=== PATIENT | male | born 1990 | race Caucasian/White ===

== ENCOUNTER → 2018-07-09 09:30 | Day surgery (SDC) | payer OTHER ==
[~2018-07-09 09:30] MED LIST: Acetaminophen TAB* 325 MG PO PRN; Bacitracin OINTMENT* 0.5% 0.5 oz TUBE ONE; Buffered Lidocaine 1% SYRIN* 1 ML/SYRINGE INTRADERM ONE; Bupivacaine 0.25% W/EPI* 10 ML SDV ONE; Dexamethasone IV* 4 MG/ML 1 ML (4 MG) IV SLOW PU ONE; Dexamethasone IV* 4 MG/ML 1 ML (4 MG) ONE; DiMENhydriNATE IV* 50 MG/ML VIAL IV PUSH PRN; Famotidine TAB* 20 MG ONE; Famotidine TAB* 20 MG PO ONE; Glycopyrrolate IV* 0.2 MG/ML 1 ML VIAL ONE; HYDROcodone/ACETAMIN 5-325 MG* 1 TAB PO PRN; HYDROmorphone INJ1* 1 MG/ML SYRINGE IV PRN; Ketorolac INJ* 30 MG/ML 1 ML VIAL IV PRN; Ketorolac INJ* 30 MG/ML 1 ML VIAL ONE; Lactated Ringers 1000 ML Bag* 1,000 ML IV SCH; Levalbuterol 1.25MG/0.5ML NEB INH ONE; Levalbuterol 1.25MG/0.5ML NEB ONE; Lidocaine 2% PF * 5 ML VIAL ONE; Midazolam* 1 MG/ML 2 ML VIAL (2 MG) ONE; Naloxone* 0.4 MG/ML 1 ML VIAL IV PRN; Neostigmine Methylsulfate* 3 MG/3 ML SYRINGE ONE; Ondansetron INJ* 2 MG/ML VIAL ONE; Propofol* 10 MG/ML 20 ML BTL ONE; Rocuronium* 10 MG/ML VIAL ONE; ceFAZolin 2 GM in NS PREMIX(*) 2 GM/100 ML BAG IVPB ONE; fentaNYL* 50 MCG/ML 2 ML VIAL (100 MCG VIAL) IV PRN; fentaNYL* 50 MCG/ML 5 ML VIAL (250 MCG VIAL) ONE
--- NOTE | 2018-07-09 13:12 | OP ---
Operative Report - Blank - Operative Report Date of Operation: 07/09/18 Note: Brief Operative Note Preop Dx: Chronic inflammation umbilicus Postop Dx: same Procedure: Diagnostic laparoscopy; excision granulomatous lesion umbilicus; primary repair umbilical hernia Anesthesia: GET Surgeon: Donya User Interface Developer: JIMENEZ Briceño Fluids: 1200 ml RL EBL: < 20 ml Specimen: umbilical lesion Drains: none Findings: dictated
[2018-07-09 14:22] VITALS: BP 107/62
--- NOTE | 2018-07-10 02:31 | OP ---
CC: [facility]; PCP OPERATIVE REPORT: DATE OF OPERATION: 07/09/18 DATE OF : 89 SURGEON: Akil Naqvi MD [employer] TEACHER: JIMENEZ Sousa ANESTHESIA: General. ANESTHESIOLOGIST: Dr. Paredes. PRE-OP DIAGNOSIS: Umbilical lesion. POST-OP DIAGNOSES: Umbilical lesion and umbilical hernia. OPERATIVE PROCEDURE: Diagnostic laparoscopy, excision of umbilical lesion, and primary repair of umb ilical hernia. ESTIMATED BLOOD LOSS: Less than 20 cc. FLUIDS: 1200 cc of crystalloid fluids given. SPECIMEN: Umbilical lesion placed in formalin. DRAINS: None. Wound was primarily closed. DESCRIPTION OF PROCEDURE: The patient was identified in the preoperative area, consent was signed. He was marked, brought to the operating room, placed on the operating room table in a supine position . Preoperative antibiotics were given. Sequential devices were placed on bilateral lower extremities . General anesthesia was induced. The patient's abdomen was clipped of hair, prepped and draped in standard surgical fashion and a time-out was performed. A left upper quadrant incision was made at Colon's point, deepened down to the anterior fascia, whic h was elevated and a Veress needle inserted into the abdominal cavity which was then allowed to insuf flate to a pressure of 15 mmHg. The patient tolerated the insufflation well. The Veress needle was removed and a 5-mm Optiview trocar was then inserted. Review of the abdomen showed no evidence of in jury from the trocar insertion. We did look at the umbilical site and could see a small defect at th e umbilicus, but no discrete lesion consistent with the known cystic lesion that was identified on ul trasound and physical exam. Did not seem to extend down to the bladder and at this point, we made ou r decision to just perform our excision. The abdomen was allowed to collapse. The trocars remained in place. Attention was turned to the umbilicus, pulled up the granular portion of the bottom of the umbilicus. Reviewing this tissue, it was boggy and violaceous. I incised this in its entirety and opened up i nto the subcutaneous planes, finding a chronically inflamed area that was dissected free sharply and passed off as specimen. We did additional debridement and cleared off some of the skin until we had clean tissue areas. We did get down to the anterior abdominal wall and identified a very small umbil ical hernia, which is primarily closed with a 0 Vicryl stitch. Did pull the umbilical skin off of th e anterior abdominal wall, but I did not tack this back down. Next, we irrigated the wound, obtained hemostasis. I did not find additional granulomatous tissue an d we then closed the incision with interrupted chromic sutures followed by antibiotic ointment and ga uze. We then insufflated the abdomen, we placed the camera through the trocar and we did not identify any injury to the abdominal contents. The closure of the umbilical hernia, I did not pull up any anterio r abdominal contents. At this point, we allowed the abdomen to collapse, that trocar was removed, an d the incision at that site was closed with 4-0 Monocryl subcuticular sutures followed by sterile lucy ssing. The patient tolerated the procedure well, was woken up in the OR, and transferred to the PACU in stable condition. [id number]/[facility] #: [id number]
== END | disposition home or self-care (01) ==
LOC: OR 09:30
PROVIDERS: ATTEND Surgery
DX: L08.82 Omphalitis not of newborn (principal); K42.9 Umbilical hernia without obstruction or gangrene; J45.909 Unspecified asthma, uncomplicated; Z72.0 Tobacco use
CPT/HCPCS: 88305; A9270-GY; J0690; J1100; J1885; J2250; J2405; J2704; J2710; J3010